=== PATIENT | male | born 1995 | race Two or more races ===

== ENCOUNTER 2018-08-14 19:19 | Emergency (ER) | payer MEDICAID ==
[~2018-08-14] VITALS: Ht 170.2 cm; Wt 86.2 kg
[2018-08-14 19:43] VITALS: BP 145/80
== END 2018-08-15 00:15 | disposition home or self-care (01) ==
LOC: ER 19:22
DX: S90.812A Abrasion, left foot, initial encounter (principal); W20.8XXA Other cause of strike by thrown, projected or falling object, initial encounter; Y93.89 Activity, other specified; Y92.89 Other specified places as the place of occurrence of the external cause; Y99.8 Other external cause status
CPT/HCPCS: 73630

== ENCOUNTER 2019-09-26 09:53 | Emergency (ER) | payer SELFPAY ==
[~2019-09-26] VITALS: Ht 167.6 cm; Wt 82.1 kg
[2019-09-26 10:19] VITALS: BP 157/83
[2019-09-26] MEDS ORDERED: AZITHROMYCIN 250 MG TAB PO ONE (12:00)
[2019-09-26] MEDS ORDERED: cefTRIAXone SODIUM 250 MG VL IM ONE (12:00)
== END 2019-09-26 12:44 | disposition home or self-care (01) ==
LOC: ER 09:53
DX: N39.0 Urinary tract infection, site not specified (principal); Z20.2 Contact with and (suspected) exposure to infections with a predominantly sexual mode of transmission
CPT/HCPCS: 81002; 96372; 99283; J0696